=== PATIENT | male | born 1980 | race Two or more races ===

== ENCOUNTER 2017-05-14 02:13 | Emergency (ER) | payer OTHER ==
[~2017-05-14] VITALS: Ht 188 cm; Wt 90.7 kg
--- NOTE | 2017-05-14 02:25 | Emergency Room Report ---
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 It was stuck but he was able to open the door. He's had pain and throbbing and bruising. There are also some skin scrapes. He is right-handed. His tetanus is less than 10 years. The pain is still hurting and throbbing. There is no numbness at the tip. He has decreased range of motion. Pain rated 9/10, throbbing when dependent. No somatic complaints. 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 Immunizations: UTD Reviewed Nursing Documentation: PMH: Agreed, PSxH: Agreed Review of Systems Constitutional: Denies: fever Musculoskeletal: Reports: see HPI Skin: Reports: see HPI Neurological: Reports: see HPI Hematologic/Lymphatic: Denies: easy bleeding Physical Exam Vital Signs Date Time Temp Pulse Resp B/P (MAP) Pulse Ox O2 Delivery O2 Flow Rate FiO2 05/14/17 02:21 97.9 59 16 138/76 100 Room Air Sp02 EP Interpretation: reviewed, normal General Appearance: well appearing, no apparent distress Head: normocephalic, atraumatic Eyes: bilateral eye normal inspection, bilateral eye PERRL ENT: hearing grossly normal, normal voice, moist mucus membranes Neck: full range of motion, supple Respiratory: no respiratory distress, speaking full sentences Cardiovascular #2: 2+ radial (R) - good cap fill diatal to injury Musculoskeletal: decreased range of mation - R index finger Neurologic: alert, motor strength/tone normal, sensory intact Psychiatric: mood/affect normal Skin: abrasions - side of finger, hematoma Medical Decision Making Diagnostic Impression: Primary Impression: Crushing injury of right index finger Qualified Codes: S67.190A - Crushing injury of right index finger, initial encounter ER Course Patient presents with crush injury of right index finger. Differential includes contusion, abrasion, fracture. X-rays are indicated. In addition we' ll give the patient Motrin and clean wound and place bacitracin. Initially refused motrin. Xray without fx. Sling applied with good position and improvement. Neurovasc grossly intact as checked by me. Patient stable for outpatient observation and treatment. Other X-Ray Diagnostic Results Other X-Ray Diagnostic Results : X-Ray ordered: R hand # of Views/Limited Vs Complete: 3 View Indication: Pain EP Interpretation: Yes Interpretation: no dislocation, no soft tissue swelling, no fractures, other - nutrient canal Impression: No acute disease Electronically Signed by: Juan Daniel Olivares MD Last Vital Signs Date Time Temp Pulse Resp B/P (MAP) Pulse Ox O2 Delivery O2 Flow Rate FiO2 05/14/17 02:54 97.9 16 138/76 100 Room Air 05/14/17 02:21 59 Status: improved Disposition: HOME, SELF-CARE Condition: Improved Scripts Ibuprofen* (MOTRIN*) 600 Mg Tablet 600 MG ORAL Q6H Y for For Pain, #20 TAB 1 Refill Prov: Juan Daniel Olivares M.D. 05/14/17 Juan Daniel Olivares M.D. May 14, 2017 02:25
[2017-05-14] MEDS ORDERED: Bacitracin Oint UD TOPIC ONE (02:30)
[2017-05-14 02:54] VITALS: BP 138/76
[2017-05-14] MEDS ORDERED: IBUPROFEN600 MG ORAL (02:58)
--- NOTE | 2017-05-14 09:16 | Diagnostic Imaging Report ---
Indication: Trauma with laceration of the index finger Technique: Right hand, 3 views Comparison: None. Findings: The osseous structures are intact. There is no fracture or destruction. The visualized joints are normal. The soft tissues are unremarkable. Impression: Normal.
== END 2017-05-14 03:01 | disposition home or self-care (01) ==
LOC: EMR 02:31
DX: S67.190A Crushing injury of right index finger, initial encounter (principal); S60.410A Abrasion of right index finger, initial encounter; S60.021A Contusion of right index finger without damage to nail, initial encounter; W23.0XXA Caught, crushed, jammed, or pinched between moving objects, initial encounter; Y92.89 Other specified places as the place of occurrence of the external cause
CPT/HCPCS: 29240; 99283